=== PATIENT | male | born 1990 | race Two or more races ===

== ENCOUNTER 2016-09-13 09:56 | Emergency (ER) | payer BC ==
[~2016-09-13] VITALS: Ht 165.1 cm; Wt 70.3 kg
[2016-09-13] MEDS ORDERED: NKM (10:07)
[2016-09-13] MEDS ORDERED: AZITHROMYCIN250 MG ORAL (10:43)
[2016-09-13 10:51] VITALS: BP 125/76
--- NOTE | 2016-09-17 07:31 | Emergency Room Report ---
History of Present Illness General Chief Complaint: Upper Respiratory Illness Source: Patient Present Illness HPI Patient presents with complaints of cough Patient had mild runny nose as well Denies any chest pain Does not feel short of breath Denies any neck pain or photophobia As the patient's cough had lingered Patient also complains of a dryness to it He was concerning came to the ER Denies any vomiting with the cough denies any recent travel Allergies: Coded Allergies: No Known Allergies (Unverified , 09/13/16) Patient History Past Medical History: see triage record Pertinent Family History: none Reviewed Nursing Documentation: PMH: Agreed, PSxH: Agreed Nursing Documentation-PM Past Medical History: No Stated History Review of Systems All Other Systems: negative except mentioned in HPI Physical Exam Vital Signs Date Time Temp Pulse Resp B/P Pulse Ox O2 Delivery O2 Flow Rate FiO2 09/13/16 10:04 98.2 69 16 127/74 99 Room Air Sp02 EP Interpretation: reviewed, normal General Appearance: well appearing, no apparent distress Head: normocephalic, atraumatic Eyes: bilateral eye EOMI, bilateral eye PERRL ENT: hearing grossly normal, normal pharynx, TMs + canals normal, uvula midline Neck: full range of motion, supple, no meningismus, no bony tend Respiratory: lungs clear, normal breath sounds, no rhonchi, no respiratory distress, no retraction, no accessory muscle use Cardiovascular #1: normal peripheral pulses, regular rate, rhythm, no edema, no gallop, no JVD, no murmur Gastrointestinal: normal bowel sounds, non tender, soft, no mass, no organomegaly, non-distended, no guarding, no hernia, no pulsatile mass, no rebound Genitourinary: no CVA tenderness Musculoskeletal: normal inspection Neurologic: oriented x3, responsive, court administrator III-XII nml as tested, motor strength/ tone normal, sensory intact Psychiatric: mood/affect normal Skin: normal color, no rash, warm/dry, palpation normal Lymphatic: normal inspection, no adenopathy Medical Decision Making Diagnostic Impression: Primary Impression: atypical pneumonia ER Course Given the patient's duration of symptoms given his findings Patient appears clinically stable does not appear septic or toxic And is appropriate for initial conservative outpatient therapy multiple considerations such as cancer, pneumonia, URI considered Last Vital Signs Date Time Temp Pulse Resp B/P Pulse Ox O2 Delivery O2 Flow Rate FiO2 09/13/16 10:51 68 20 125/76 99 Room Air 09/13/16 10:04 98.2 Status: unchanged Disposition: HOME, SELF-CARE Condition: Stable Scripts Azithromycin* (ZITHROMAX*) 250 Mg Tablet 250 MG ORAL DAILY, #6 TAB 0 Refills Take two tablets by mouth today, then take one tablet by mouth daily for four days Prov: JEMMA ESPINOSA D.O. 09/13/16 Referrals: NOT CHOSEN IPA/MD,REFERRING (PCP) Patient Instructions: Upper Respiratory Infection, Adult Additional Instructions: Patient is provided with the discharge instructions notified to follow up with primary doctor in the next 2-3 days otherwise return to the er with any worsening symptoms. Please note that this report is being documented using [employer] technology. This can lead to erroneous entry secondary to incorrect interpretation by the dictating instrument. JEMMA ESPNIOSA D.O. Sep 17, 2016 07:31
== END 2016-09-13 10:55 | disposition home or self-care (01) ==
LOC: EMR 10:21
DX: J18.9 Pneumonia, unspecified organism (principal)
CPT/HCPCS: 99283